=== PATIENT | female | born 1960 | race Caucasian/White ===

== ENCOUNTER → 2021-04-18 10:27 | Outpatient (CLI) | payer OTHER, SELFPAY ==
[2021-04-18 11:46] LABS: COVID19 -Nasal RAPID Negative (Negative)
== END ==
PROVIDERS: Visit Provider Nurse Practitioner
DX: Z20.822 Contact with and (suspected) exposure to COVID-19 (principal); R51.9 Headache, unspecified; R53.83 Other fatigue; R06.02 Shortness of breath; J02.9 Acute pharyngitis, unspecified
CPT/HCPCS: 87635

== ENCOUNTER 2021-06-26 16:09 | Emergency (ER) | payer OTHER, SELFPAY ==
[2021-06-26 17:53] VITALS: BP 119/74; PULSE 64; RESP 16; TEMP 37.5; O2SAT 100; BMI 20.1
--- NOTE | 2021-06-26 17:56 | DI.RAD.S_ITS ---
PROCEDURE: XR CHEST 1V INDICATIONS: chest pain TECHNIQUE: One view of the chest was acquired. COMPARISON: None. FINDINGS: Surgical changes and devices: None. Lungs and pleura: Lungs are clear. No pleural effusions or pneumothorax. Mediastinum: Mediastinal contours appear normal. Heart size is normal. Bones and chest wall: No suspicious bony lesions. Overlying soft tissues appear unremarkable. IMPRESSION: No evidence acute pulmonary process. Dictated by: Marino Persaud M.D. on 06/26/2021 at 18:30 Approved by: Marino Persaud M.D. on 06/26/2021 at 18:30
[2021-06-26 18:11] LABS: Add Manual Diff / Slide Review NO; Basophils Absolute Auto 0 /uL (0-100); Basophils Percent Auto 0.8 % (0-2); Eosinophils Absolute Auto 100 /uL (0-450); Eosinophils Percent Auto 2.3 % (2-4); Hematocrit 38.9 % (36-46); Lymphocytes Absolute Auto 2600 /uL (1100-4500); Lymphocytes Percent Auto 43.7 % (25-40); Mean Corpuscular HGB Conc 33.5 % (30-36); Mean Corpuscular Hemoglobin 30.4 PG (26-34); Mean Corpuscular Volume 90.5 fL (80-100); Monocytes Absolute Auto 400 /uL (0-900); Monocytes Percent Auto 6.9 % (3-14); Neutrophils Absolute Auto 2700 /uL (1500-7000); Neutrophils Percent Auto 46.3 % (50-75); Platelet Count 236 X10^3/uL (150-400); Red Blood Cell Count 4.29 X10^6/uL (4.0-5.2); White Blood Cell Count 5.9 X10^3/uL (4.5-11.0)
[2021-06-26 18:22] LABS: Alanine Aminotransferase 21 IU/L (<35); Albumin 4.1 g/dL (3.5-5.0); Albumin Globulin Ratio 1.3 (1.0-2.8); Alkaline Phosphatase 44 U/L (38-126); Aspartate Aminotransferase 27 IU/L (14-36); BUN Creatinine Ratio 25.8 (6-22); Bilirubin Total 0.4 mg/dL (0.2-1.3); Blood Urea Nitrogen 17 mg/dL (7-17); Calcium 9.3 mg/dL (8.4-10.2); Carbon Dioxide 27 mmol/L (22-32); Chloride 105 mmol/L (98-107); Creatine Kinase 52 U/L (30-135); Estimated Glomerular Filt Rate > 60.0 mL/min (>60); Globulin 3.2 g/dL (1.7-4.1); Glucose 105 mg/dL (80-110); HEMOLYSIS 17 (0-50); Lipase 125 U/L (23-300); Potassium 3.9 mmol/L (3.4-5.1); Sodium 137 mmol/L (137-145); Total Protein 7.3 g/dL (6.3-8.2)
[2021-06-26 18:34] LABS: Troponin I < 0.012 ng/mL (0.01-0.034)
[2021-06-26] MEDS: ASPIRIN 81 MG CHEW TAB 324 MG PO (19:09)
--- NOTE | 2021-06-26 19:33 | ED.CHESTPAIN ---
HPI - Chest Pain General Chief Complaint: Chest Pain Stated Complaint: chest pains Time Seen by Provider: 06/26/21 18:09 Source: patient Mode of arrival: Ambulatory Limitations: no limitations History of Present Illness HPI narrative: This is a 61-year-old female comes emergency department with complaint of chest pain and left arm numbness that happened 4 times in the past month. Patient states every time happens when she awakens. She gets up and is gone within 20-60 seconds. She states this morning it occurred about 3:00 a.m. and resolved within 20 seconds. She states her left arm will also feel numb like she has lost sensation. She denies pain or pressure or discomfort in the arm. She states it is more of a pins and needle sensation. Patient states that it only occurring when she is sleeping and wakes up she has not had any episodes during the daytime. 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 Patient states she did have some tightness in her chest all day but nothing seem to make it worse or better. She denies any syncope. She has had some mild headaches at times she took an aspirin. She states her blood pressures typically 95-100 systolic. She denies any nausea vomiting. No issues with bowel movements or urination. No shortness of breath. No swelling in her extremities. She takes progesterone and estrogen hormone replacement. She had an appendectomy any urine half. No allergies to meds. No tobacco, rare alcohol, no illicit. Family history includes a sister 1 of 10 siblings who has had blood clots and she states is on steroids. No known cardiac history on either side. She has 2 maternal aunts who had lung problems 1 was a smoker and 1 was not. Her primary care is Sima Xiong. Related Data Home Medications Medication Instructions Recorded Confirmed [estrogen/pregesteron] #0 05/08/17 06/26/21 Allergies Allergy/AdvReac Type Severity Reaction Status Date / Time No Known Allergies Allergy Uncoded 06/26/21 14:16 Review of Systems Review of Systems ROS Unobtainable: All systems reviewed & are unremarkable except as noted in HPI and below Patient History Social History Smoking Status: Former smoker Smoking Status: Former smoker alcohol intake frequency: 0-2 drinks per day Substance Use Type: does not use Exam Narrative Exam Narrative: GENERAL: Alert and oriented x three, well-nourished female distress. HEENT: Head normocephalic, atraumatic, EOMI, pupils reactive, face symmetric, moist mucous membranes NECK: Supple, full range of motion, no cervical vertebral tenderness. CARDIOVASCULAR: Regular rate and rhythm without murmurs, rubs or gallops. RESPIRATORY: Breath sounds equal bilaterally, no wheezes rales or rhonchi. ABDOMEN: Soft, nontender. Normoactive bowel sounds all 4 quadrants. No guarding or rebound, rigidity, no mass : No CVA tenderness EXTREMITIES: Normal range of motion, no clubbing or edema. Neurovascularly intact. 2+ radial pulse bilaterally. NEUROLOGICAL: Cranial nerves II through XII grossly intact. Moving all extremities SKIN: Warm, dry, no petechiae, no rashes or lesions. Initial Vital Signs Initial Vital Signs: Vital Signs Temperature 99.5 F 06/26/21 17:53 Pulse Rate 64 06/26/21 17:53 Respiratory Rate 16 06/26/21 17:53 Blood Pressure 119/74 06/26/21 17:53 Pulse Oximetry 100 06/26/21 17:53 Scores HEART Score Heart Score history: Slightly Suspicious Heart Score EKG: Normal Heart Score Age: 45-64 years old Heart Score risk factors: No known risk factors Heart Score troponin: < or = to normal limit Heart Score Total: 1 PERC Score Age greater than or equal to 50 years: Yes Heart rate greater than or equal to 100 bpm: No Room Air O2 Sat less than 95%: No Unilateral leg swelling: No Recent trauma or surgery: No Hemoptysis: No Prior PE or DVT: No Hormone Use: Yes Total PERC Score: 2 Course Orders Ordered: ED Orders 06/26/21 19:58 EKG-12 Lead Stat 06/26/21 20:05 Troponin I Stat Discontinued Medications Aspirin (Aspirin 81 Mg Chew Tab) 324 mg PO NOW ONE Stop: 06/26/21 17:57 Last Admin: 06/26/21 19:09 Dose: 324 mg Documented by: TONIA Vital Signs Vital signs: Vital Signs - 8 hr 06/26/21 19:49 06/26/21 20:00 06/26/21 20:04 Pulse Rate 66 72 69 Respiratory Rate 27 H 31 H 20 Blood Pressure 129/72 141/65 H Pulse Oximetry 98 99 99 06/26/21 20:30 Pulse Rate 60 Respiratory Rate 25 H Blood Pressure 126/72 Pulse Oximetry 99 MDM - Chest Pain Lab Data Result diagrams: 06/26/21 17:52 06/26/21 17:52 Labs: Lab Results 06/26/21 06/26/21 06/26/21 Range/Units 17:52 17:52 17:52 WBC 5.9 (4.5-11.0) X10^3/uL RBC 4.29 (4.0-5.2) X10^6/uL Hgb 13.0 (12.0-16.0) g/dL Hct 38.9 (36-46) % MCV 90.5 (80-100) fL MCH 30.4 (26-34) PG MCHC 33.5 (30-36) % RDW 14.0 (11.6-14.8) % Plt Count 236 (150-400) X10^3/uL Neut % (Auto) 46.3 L (50-75) % Lymph % (Auto) 43.7 H (25-40) % [place] % (Auto) 6.9 (3-14) % Eos % (Auto) 2.3 (2-4) % Baso % (Auto) 0.8 (0-2) % Neut # (Auto) 2700 (9206-2689) /uL Lymph # (Auto) 2600 (4415-7531) /uL [place] # (Auto) 400 (0-900) /uL Eos # (Auto) 100 (0-450) /uL Baso # (Auto) 0 (0-100) /uL D-Dimer < 200 (<230) ng/mL Sodium 137 (137-145) mmol/L Potassium 3.9 (3.4-5.1) mmol/L Chloride 105 (98-107) mmol/L Carbon Dioxide 27 (22-32) mmol/L BUN 17 (7-17) mg/dL Creatinine 0.66 (0.52-1.04) mg/dL Estimated GFR > 60.0 (>60) mL/min BUN/Creatinine Ratio 25.8 H (6-22) Glucose 105 (80-110) mg/dL Calcium 9.3 (8.4-10.2) mg/dL Total Bilirubin 0.4 (0.2-1.3) mg/dL AST 27 (14-36) IU/L ALT 21 (<35) IU/L Alkaline Phosphatase 44 (38-126) U/L Total Creatine Kinase 52 (30-135) U/L CK-MB (CK-2) TNP CK-MB (CK-2) Rel Index TNP Troponin I < 0.012 (0.01-0.034) ng/mL Total Protein 7.3 (6.3-8.2) g/dL Albumin 4.1 (3.5-5.0) g/dL Globulin 3.2 (1.7-4.1) g/dL Albumin/Globulin Ratio 1.3 (1.0-2.8) Lipase 125 (23-300) U/L 06/26/21 Range/Units 20:05 WBC (4.5-11.0) X10^3/uL RBC (4.0-5.2) X10^6/uL Hgb (12.0-16.0) g/dL Hct (36-46) % MCV (80-100) fL MCH (26-34) PG MCHC (30-36) % RDW (11.6-14.8) % Plt Count (150-400) X10^3/uL Neut % (Auto) (50-75) % Lymph % (Auto) (25-40) % [place] % (Auto) (3-14) % Eos % (Auto) (2-4) % Baso % (Auto) (0-2) % Neut # (Auto) (0691-5965) /uL Lymph # (Auto) (8654-4878) /uL [place] # (Auto) (0-900) /uL Eos # (Auto) (0-450) /uL Baso # (Auto) (0-100) /uL D-Dimer (<230) ng/mL Sodium (137-145) mmol/L Potassium (3.4-5.1) mmol/L Chloride (98-107) mmol/L Carbon Dioxide (22-32) mmol/L BUN (7-17) mg/dL Creatinine (0.52-1.04) mg/dL Estimated GFR (>60) mL/min BUN/Creatinine Ratio (6-22) Glucose (80-110) mg/dL Calcium (8.4-10.2) mg/dL Total Bilirubin (0.2-1.3) mg/dL AST (14-36) IU/L ALT (<35) IU/L Alkaline Phosphatase (38-126) U/L Total Creatine Kinase (30-135) U/L CK-MB (CK-2) CK-MB (CK-2) Rel Index Troponin I < 0.012 (0.01-0.034) ng/mL Total Protein (6.3-8.2) g/dL Albumin (3.5-5.0) g/dL Globulin (1.7-4.1) g/dL Albumin/Globulin Ratio (1.0-2.8) Lipase (23-300) U/L Imaging Data Chest x-ray: Radiologist's Impression: Danilo Marques??61??F??1960 ? Allergy/Adv: [No Known Allergies] Close Chest X-Ray (Signed) Marino Persaud - 06/26/21 [facility]?[place] [address] XRay Report Signed Patient: Danilo Marques MR#: [id number] : 1960 Acct:[id number] Age/Sex: 61 / F Date of Service: 06/26/21 Loc: ED Accession Number: [id number] ?? Procedure: XR chest 1V Ordering Provider: Leandro Lee D.O. PROCEDURE:? XR CHEST 1V ? INDICATIONS:? chest pain ? TECHNIQUE:? One view of the chest was acquired.? ? COMPARISON:? None. ? FINDINGS:? ? Surgical changes and devices:? None.? ? Lungs and pleura:? Lungs are clear.? No pleural effusions or pneumothorax.? ? Mediastinum:? Mediastinal contours appear normal.? Heart size is normal.? ? Bones and chest wall:? No suspicious bony lesions.? Overlying soft tissues appear unremarkable.? ? IMPRESSION:? No evidence acute pulmonary process. ? ? ? Dictated by: Marino Persaud M.D. on 06/26/2021 at 18:30 ? ? Approved by: Marino Persaud M.D. on 06/26/2021 at 18:30? ECG Data Attestation: I personally reviewed and interpreted this ECG as follows: Prior ECG tracings: not available for review Interpretation: Sinus rhythm rate of 60 [place] 172 QRS is 78 QTC [address]. No acute ST elevation depression appreciated. No priors available. EKG 2. Sinus rhythm rate of 61 [place] 172 QRS 80 QTC of 408. No acute ST changes appreciated. MDM Narrative Medical decision making narrative: This is a 61-year-old female comes in with complaint of chest pain that only occurs while sleeping and she awakens. Happened 4 times in the last month as well as numbness down her left arm in a pins and needles type sensation. It always occurs at night upon awakening it resolved within 20-60 seconds each time. She is on hormone replacement therapy. She does not have any significant cardiac risk factors from family history or in her own history but does have a sister 1/10 siblings who has had blood clots with no other known clotting issues in her family. Patient's EKG shows no acute change, chest x-ray is clear with labs unremarkable, troponin was repeated and D-dimer was included are all negative. Patient and I discussed her symptomatology seems much were consistent with impingement type syndrome or thoracic involvement muscular symptoms. Patient was asked to follow up and return if she has any new or changing symptoms. Discharge Plan Departure Patient Disposition: Home Clinical Impression: Atypical chest pain, Arm paresthesia, left Instructions: DI for Atypical Chest Pain Activity Restrictions/Additional Instructions: Your symptoms today seem much more consistent with an impingement of nerve potentially causing your pain or musculoskeletal thoracic cause of your symptoms. Today your labs, EKG and chest x-ray do not show any acute changes. Please follow-up with your physician for recheck. The may continue home medications as prescribed. Please return for new or worsening symptoms, new changes to your chest pain, shortness of breath, lightheadedness or passing out, after having diaphoresis, nausea or vomiting, new weakness in her extremity or any other new or concerning symptoms. Prescriptions: No Action [estrogen/pregesteron] Qty: 0 RF: 0 Referrals: Sima Xiong PA-C [Primary Care Provider] -
[2021-06-26 19:49] VITALS: PULSE 66; RESP 27; O2SAT 98
[2021-06-26 19:57] LABS: D Dimer < 200 ng/mL (<230)
[2021-06-26 20:00] VITALS: BP 129/72; PULSE 72; RESP 31; O2SAT 99
[2021-06-26 20:04] VITALS: BP 126/72; BP 141/65; PULSE 69; RESP 20; O2SAT 99
[2021-06-26 20:30] VITALS: BP 126/72; PULSE 60; RESP 25; O2SAT 99
[2021-06-26 20:39] LABS: Troponin I < 0.012 ng/mL (0.01-0.034)
== END 2021-06-26 21:03 | disposition home or self-care (01) ==
PROVIDERS: Emergency Medicine; Emergency Provider Emergency Medicine; PCP Physician Assistant
DX: R07.89 Other chest pain (principal); R20.2 Paresthesia of skin
CPT/HCPCS: 36415; 71045; 80053; 82550; 83690; 84484; 85025; 85379; 93005; 93010; 99284

== ENCOUNTER → 2021-07-23 08:05 | Outpatient (CLI) | payer OTHER, SELFPAY ==
--- NOTE | 2021-07-23 | DI.US.S_ITS ---
PROCEDURE: US ABDOMEN COMPLETE INDICATIONS: Epigastric pain TECHNIQUE: Real-time scanning was performed of the abdominal and retroperitoneal organs, with image documentation. COMPARISON: None. FINDINGS: Liver: Liver is normal in size and homogeneous in echotexture. Gallbladder: No findings of gallstones or sludge are seen. The gallbladder wall is not thickened, measuring 3 mm or less. No specific pericholecystic fluid is seen. The sonographic Omalley sign is negative. Biliary ducts: Intrahepatic bile ducts are non-dilated. Extrahepatic bile duct caliber measures 8 mm. Normal is 6-7 mm or less in diameter, or 10 mm or less post-cholecystectomy. Pancreas: Visualized portions of the pancreas are sonographically normal. Spleen: Spleen is normal in size and homogeneous in echotexture. Kidneys: Kidneys are normal in size and echotexture. Right kidney measures 9.8 cm long; left kidney measures 10.5 cm long. No nephrolithiasis. No solid masses. Trace prominence of the right renal collecting system can be seen, without yamilka hydronephrosis. Aorta: Visualized aorta is normal in caliber at less than 3 cm. Iliacs: Proximal common iliac arteries are normal in caliber at less than 2.5 cm. IVC: Intrahepatic inferior vena cava is patent. Miscellaneous: No free abdominal fluid. IMPRESSION: The gallbladder demonstrates a normal sonographic appearance. Minimal biliary dilatation is seen, with the common bile duct measuring 8 mm. Trace prominence of the right renal collecting system can be seen, without yamilka hydronephrosis. Dictated by: Aurelio Morales M.D. on 07/23/2021 at 8:45 Approved by: Aurelio Morales M.D. on 07/23/2021 at 8:46
== END ==
PROVIDERS: PCP Physician Assistant; Referring Provider Internal Medicine; Visit Provider Internal Medicine
DX: R10.13 Epigastric pain (principal)
CPT/HCPCS: 76700

== ENCOUNTER → 2023-11-25 10:15 | Outpatient (CLI) | payer OTHER, SELFPAY ==
[2023-11-25 11:34] LABS: Influenza A - CEPHEID Flu A POSITIVE (NEGATIVE); Influenza B - CEPHEID Flu B NEGATIVE (NEGATIVE); Respiratory Syncytial Virus Negative (Negative)
[2023-11-25 11:35] LABS: COVID-19 CEPHEID 4-PLEX PCR Negative (Negative)
== END ==
PROVIDERS: PCP Physician Assistant; Visit Provider Physician Assistant Surgical
DX: R50.9 Fever, unspecified (principal); R05.9 Cough, unspecified; J02.9 Acute pharyngitis, unspecified
CPT/HCPCS: 0241U; 87070

== ENCOUNTER → 2024-02-03 14:31 | Outpatient (CLI) | payer OTHER, SELFPAY ==
--- NOTE | 2024-02-03 14:36 | DI.MG.S_ITS ---
BILATERAL DIGITAL SCREENING MAMMOGRAM 3D/2D WITH CAD: 02/03/2024 CLINICAL: Routine screening. Comparison is made to exams dated: 03/22/2017 mammogram and 01/29/2011 mammogram - [facility]. Both breasts are heterogeneously dense, which may obscure small masses (category c / 51-75% glandular tissue). Current study was also evaluated with a Computer Aided Detection (CAD) system. There are grouped calcifications in the left breast at 7 o'clock anterior depth. These are increased in size. Grouped calcifications in the right breast are not significantly changed. No other significant masses, calcifications, or other findings are seen in either breast. IMPRESSION: INCOMPLETE: NEEDS ADDITIONAL IMAGING EVALUATION The grouped calcifications in the left breast are indeterminate. Additional views with possible ultrasound are recommended. Based on the Tyrer Cuzick model (a risk assessment model) the patient's lifetime risk is 12.6% and her 10 year risk is 5.9%. According to the ACR, ACS, and NCCN guidelines, an annual breast MRI exam along with mammogram is recommended if the patient's lifetime risk is 20% or greater. This exam was interpreted at Station ID: [id number]. NOTE: For mammograms, a report in lay terms will be sent to the patient. Approximately 15% of breast malignancies will not be visualized mammographically. In the management of a palpable breast mass, a negative mammogram must not discourage biopsy of a clinically suspicious lesion. Electronically Signed By: Dameon Driscoll M.D. [facility]/:02/03/2024 16:07:34 letter sent: Additional Imaging Needed ACR BI-RADS Category 0: Incomplete 3340F
--- NOTE | 2024-02-03 14:37 | DI.RAD.S_ITS ---
PROCEDURE: XR CHEST 2V INDICATIONS: ACUTE COUGH TECHNIQUE: 2 views of the chest were acquired. COMPARISON: [facility], CR, XR CHEST 1V, 06/26/2021, 18:15. FINDINGS: Surgical changes and devices: None. Lungs and pleura: Lungs are clear. No pleural effusions or pneumothorax. Mediastinum: Mediastinal contours are normal. Heart size is normal. Bones and chest wall: No suspicious bony abnormalities. Soft tissues appear unremarkable. IMPRESSION: No acute cardiopulmonary abnormality is seen. No focal consolidation. Dictated by: Guillermo Parker M.D. on 02/03/2024 at 15:27 Approved by: Guillermo Parker M.D. on 02/03/2024 at 15:27
== END ==
PROVIDERS: PCP Physician Assistant; Referring Provider Nurse Practitioner Family; Visit Provider Nurse Practitioner Family
DX: Z12.31 Encounter for screening mammogram for malignant neoplasm of breast (principal); R92.333 Mammographic heterogeneous density, bilateral breasts; R05.1 Acute cough
CPT/HCPCS: 71046; 77063; 77067

== ENCOUNTER → 2024-03-03 08:55 | Outpatient (CLI) | payer OTHER, SELFPAY ==
--- NOTE | 2024-03-03 08:56 | DI.MG.S_ITS ---
UNILATERAL LEFT DIGITAL DIAGNOSTIC MAMMOGRAM 3D/2D WITH ADDITIONAL VIEWS: 03/03/2024 CLINICAL: Additional evaluation requested from prior study. Comparison is made to exams dated: 02/03/2024 mammogram, 03/22/2017 mammogram, and 01/29/2011 mammogram - [facility]. The left breast is heterogeneously dense, which may obscure small masses (category c / 51-75% glandular tissue). There are new 0.7 cm grouped fine heterogeneous calcifications in the left breast at 7 o'clock anterior depth. No other significant masses or calcifications are seen in the breast. IMPRESSION: INCOMPLETE: NEEDS ADDITIONAL IMAGING EVALUATION The new 0.7 cm grouped fine heterogeneous calcifications in the left breast are suspicious of malignancy. Targeted ultrasound is recommended to evaluate for possible target for US-guided biopsy, given that the calcifications are superficial and would be difficult to target with tomosynthesis-guided biopsy. Based on the Tyrer Cuzick model (a risk assessment model) the patient's lifetime risk is 12.6% and her 10 year risk is 5.9%. According to the ACR, ACS, and NCCN guidelines, an annual breast MRI exam along with mammogram is recommended if the patient's lifetime risk is 20% or greater. This exam was interpreted at Station ID: [id number]. NOTE: For mammograms, a report in lay terms will be sent to the patient. Approximately 15% of breast malignancies will not be visualized mammographically. In the management of a palpable breast mass, a negative mammogram must not discourage biopsy of a clinically suspicious lesion. Electronically Signed By: Toy Dorado M.D. ar/:03/03/2024 13:05:09 ACR BI-RADS Category 0: Incomplete 3340F
--- NOTE | 2024-03-03 08:57 | DI.US.S_ITS ---
LIMITED ULTRASOUND OF LEFT BREAST AND AXILLA: 03/03/2024 CLINICAL: Patient returns for magnification views of microcalcifications in the left breast. Comparison is made to exams dated: 03/03/2024 mammogram, 02/03/2024 mammogram, and 03/22/2017 mammogram - [facility]. Color flow and real-time ultrasound of the left breast 7 o'clock, and axilla regions were performed. Boothe scale images of the real-time examination were reviewed. There is a 0.4 cm x 0.9 cm x 0.3 cm area of fibrocystic tissue in the left breast at 7 o'clock anterior depth 5 cm from the nipple. This area of fibrocystic tissue is hypoechoic. This likely correlates with mammography findings. There are related micro calcifications. No significant abnormalities were seen sonographically in the left axilla. IMPRESSION: SUSPICIOUS OF MALIGNANCY The 0.4 cm x 0.9 cm x 0.3 cm area of fibrocystic tissue in the left breast is at a low suspicion for malignancy. An ultrasound guided biopsy is recommended. Findings and recommendations were discussed with the patient by the on-site radiologist, Dr. Mendoza, at the time of the exam. Recommend close radiographic correlation with post-biopsy mammograms to ensure concordance between mammographic and ultrasound findings. No significant abnormalities were seen sonographically in the left axilla. This exam was interpreted at Station ID: [id number]. Electronically Signed By: Toy Dorado M.D. ar/:03/03/2024 13:08:23 letter sent: Biopsy Required Ultrasound BI-RADS: 4a Low suspicion for malignancy
== END ==
LOC: MAMMO 08:56
PROVIDERS: PCP Physician Assistant; Referring Provider Nurse Practitioner Family; Visit Provider Nurse Practitioner Family
DX: R92.8 Other abnormal and inconclusive findings on diagnostic imaging of breast (principal); R92.1 Mammographic calcification found on diagnostic imaging of breast; R92.332 Mammographic heterogeneous density, left breast
CPT/HCPCS: 76642; 77065; G0279

== ENCOUNTER → 2024-03-23 14:11 | Outpatient (CLI) | payer BC, SELFPAY ==
--- NOTE | 2024-03-23 | PATH_ITS ---
[facility] Accession Number: [id number] No. of containers..01 Tissue . 01 Material submitted: . breast - LEFT BREAST MASS 7:00 4 CM FN . 01 Diagnosis: LEFT BREAST, MASS 7 O'CLOCK 4 CM FN, CORE NEEDLE BIOPSY: Benign breast tissue admixed with adipose tissue and fibrosis. Please see comment. Rare microcalcifications present in association with nonneoplastic tissue. Negative for atypical hyperplasia, in situ or invasive carcinoma. MRV 03/29/2024 1357 Local . 01 Comment: A diagnosis of mammary hamartoma is favored, in the appropriate radiologic setting. . 01 Electronically signed: . Zina Benson MD, Pathologist NPI- [id number] . 01 Gross description: . Received in formalin with two identifiers and no site on jar, are multiple yellow-ross soft tissue fragments aggregating to 1.7 x 1.1 x 0.2 cm. Filtered, inked orange, and submitted entirely in cassette A1. . The specimen was removed on 03/23/2024 at 1517 hours, time in formalin not provided, cold ischemic time cannot be calculated, total fixation time is approximately 35 hours. ([id number]) /HOLLY 03/24/2024 0917 Local . 01 Pathologist provided ICD-10: N63.20 . 01 CPT . 620326 Specimen Comment: A courtesy copy of this report has been sent to [facility] Pathology Performed at: [address] [id number] MD Amol Paul MD Phone: [phone]
--- NOTE | 2024-03-23 14:12 | DI.MG.S_ITS ---
UNILATERAL LEFT DIGITAL DIAGNOSTIC MAMMOGRAM 3D/2D - LEFT BREAST POST-PROCEDURE IMAGING FOR MARKER PLACEMENT: 03/23/2024 CLINICAL: Post left breast ultrasound biopsy, clip placement imaging. Comparison is made to exams dated: 03/03/2024 mammogram, 02/03/2024 mammogram, and 03/22/2017 mammogram - [facility]. The left breast is heterogeneously dense, which may obscure small masses (category c / 51-75% glandular tissue). There is a marker clip in the appropriate position in the left breast at 7 o'clock anterior depth. IMPRESSION: POST PROCEDURE MAMMOGRAM FOR MARKER PLACEMENT There was a successful marker clip placement in the left breast anterior depth. Based on the Tyrer Cuzick model (a risk assessment model) the patient's lifetime risk is 12.6% and her 10 year risk is 5.9%. According to the ACR, ACS, and NCCN guidelines, an annual breast MRI exam along with mammogram is recommended if the patient's lifetime risk is 20% or greater. This exam was interpreted at Station ID: [id number]. NOTE: For mammograms, a report in lay terms will be sent to the patient. Approximately 15% of breast malignancies will not be visualized mammographically. In the management of a palpable breast mass, a negative mammogram must not discourage biopsy of a clinically suspicious lesion. Electronically Signed By: Francesca pfeiffer/jayashree:03/23/2024 15:17:36 ACR BI-RADS Category Post-procedure mammogram for marker placement
--- NOTE | 2024-03-23 14:12 | DI.US.S_ITS ---
PROCEDURE: US BX BREAST PERC W VAC DEVICE COMPARISON: None. INDICATIONS: LEFT BREAST MASS FINDINGS/IMPRESSION: Successful biopsy of a mass within the left breast at the 7 o'clock position. Dictated by: Jose Alfredo Boland M.D. on 03/23/2024 at 17:08 Approved by: Jose Alfredo Boland M.D. on 03/23/2024 at 17:09
== END ==
PROVIDERS: PCP Physician Assistant; Referring Provider Nurse Practitioner Family; Visit Provider Nurse Practitioner Family
DX: R92.8 Other abnormal and inconclusive findings on diagnostic imaging of breast (principal); N60.32 Fibrosclerosis of left breast; R92.1 Mammographic calcification found on diagnostic imaging of breast; R92.332 Mammographic heterogeneous density, left breast
CPT/HCPCS: 19083; 77065

== ENCOUNTER → 2025-04-30 14:05 | Outpatient (CLI) | payer OTHER, SELFPAY ==
[2025-04-30 15:21] LABS: Add Manual Diff / Slide Review NO; Hematocrit 40.4 % (36-46); Hemoglobin 13.6 g/dL (12.0-16.0); Lymphocytes Absolute Auto 2200 /uL (1100-4500); Mean Corpuscular HGB Conc 33.6 % (30-36); Mean Corpuscular Hemoglobin 31.1 PG (26-34); Mean Corpuscular Volume 92.7 fL (80-100); Platelet Count 268 X10^3/uL (150-400)
[2025-04-30 15:52] LABS: Alanine Aminotransferase 21 IU/L (<35); Albumin 4.1 g/dL (3.5-5.0); Albumin Globulin Ratio 1.4 (1.0-2.8); Alkaline Phosphatase 56 U/L (38-126); Blood Urea Nitrogen 19 mg/dL (7-17); Calcium 9.3 mg/dL (8.4-10.2); Carbon Dioxide 28 mmol/L (22-32); Chloride 102 mmol/L (98-107); Cholesterol 188 mg/dL (140-199); Estimated Glomerular Filt Rate > 60 mL/min (>60); Globulin 2.9 g/dL (1.7-4.1); Glucose 87 mg/dL (70-99); HDL Cholesterol 76 mg/dL (40-60); HEMOLYSIS < 15 (0-50); Potassium 4.2 mmol/L (3.4-5.1); Sodium 137 mmol/L (137-145); Total Protein 7.0 g/dL (6.3-8.2); Triglycerides 95 mg/dL (35-150)
[2025-04-30 16:22] LABS: TSH w/ Reflex to FT4 0.86 uIU/mL (0.47-4.68)
== END ==
PROVIDERS: PCP Physician Assistant; Referring Provider Nurse Practitioner Family; Visit Provider Nurse Practitioner Family
DX: Z00.00 Encounter for general adult medical examination without abnormal findings (principal)
CPT/HCPCS: 36415; 80053; 80061; 84443; 85025